=== PATIENT | male | born 1950 | race Caucasian/White ===

== ENCOUNTER → 2018-08-05 | Outpatient (REF) | payer MEDICARE ==
[2018-08-05 09:37] LABS: ANION GAP 16 (6-22 (CALC)); BUN 25 mg/dL (8-23); BUN/CREATININE RATIO 20 (12-20 (CALC)); CARBON DIOXIDE 25 mmol/l (22-30); CHLORIDE 104 mmol/l (95-108); CREATININE 1.3 mg/dL (0.7-1.3); GFR 55 ML/MIN (>=60 (CALC)); GFR FOR AFR.AMER. > 60 ML/MIN (>=60 (CALC)); SODIUM 140 mmol/l (137-146)
== END | disposition home or self-care (01) ==
LOC: LAB 07:56
PROVIDERS: ATTEND Internal Medicine
DX: R73.09 Other abnormal glucose (principal)

== ENCOUNTER 2020-06-21 14:07 | Emergency (ER) | payer MEDICARE ==
[~2020-06-21] VITALS: Ht 180.3 cm; Wt 95.0 kg
[2020-06-21] MEDS ORDERED: METFORMIN HCL500 M1 PO (15:36)
[2020-06-21] MEDS ORDERED: LISINOPRIL20 MG PO (15:36)
[2020-06-21] MEDS ORDERED: CLOPIDOGREL75 MG PO (15:37)
[2020-06-21] MEDS ORDERED: ROSUVASTATIN CA40 MG PO (15:37)
[2020-06-21] MEDS ORDERED: METOPROL TAR25 MG PO (15:38)
[2020-06-21] MEDS ORDERED: ASPIRIN81 MG PO (15:38)
[2020-06-21] MEDS ORDERED: ZPAK PO (16:14)
[2020-06-21 16:18] VITALS: BP 152/61
== END 2020-06-21 16:20 | disposition home or self-care (01) ==
LOC: ED 14:07
DX: U07.1 COVID-19 (principal); J06.9 Acute upper respiratory infection, unspecified; E11.9 Type 2 diabetes mellitus without complications; I10 Essential (primary) hypertension; I25.10 Atherosclerotic heart disease of native coronary artery without angina pectoris; E78.5 Hyperlipidemia, unspecified; Z79.84 Long term (current) use of oral hypoglycemic drugs